=== PATIENT | male | born 1990 | race Caucasian/White ===

== ENCOUNTER 2016-10-28 10:31 | Emergency (ER) | payer OTHER ==
--- NOTE | ~2016-10-28 | CR169 ---
[facility] A Service of [facility] RADIOLOGY TEXT RESULTS PATIENT: LAYA LORD LOCATION: [facility] : [birth year] UNIT #: [id number] AGE: [address]: Giovanna Lyon SEX: M ORDER DR: [id number] [facility] [address] [place], [place] [address] [id number] E MR#: [id number] Acc #: [id number] NAME: LAYA LORD : 1990 SEX: M STUDY DATE/TIME: 10/28/2016 10:21 UNIT: [facility] ROOM: STUDY DESCRIPTION: CR Knee 2 Views Lt Attending Physician: Giovanna Lyon P.A.-C. Ordering Physician: Giovanna Lyon P.A.-C. [facility] This report is preliminary unless electronic signature is present EXAM Left knee 10/28/2016 HISTORY 26-year-old male with left knee pain for 3 days. History of gout. COMPARISON None. FINDINGS 2 views of the left knee demonstrate no acute fracture or dislocation. Small knee effusion. Joint spaces are maintained. No bony erosions. Soft tissues otherwise unremarkable. IMPRESSION Small left knee effusion. No acute bony abnormality. Dictated by... Richard Ochoa M.D. THIS IS AN ELECTRONICALLY VERIFIED REPORT Richard Ochoa M.D. at 10/28/2016 2:14 PM JAIDA/varun TD: 10/28/2016 12:20 JOB #: [id number] MEDICAL IMAGING REPORT Page 1 of 1 COPY
[~2016-10-28 10:31] MED LIST: BACTRIM DS TABL1 TAB PO; IBUPROFEN PO; IBUPROFEN800 MG PO; KEFLEX PO
== END 2016-10-28 11:20 | disposition home or self-care (01) ==
LOC: CED 10:31
DX: M10.9 Gout, unspecified (principal); M25.462 Effusion, left knee
CPT/HCPCS: 29530; 73560; 99283

== ENCOUNTER 2017-03-07 19:30 | Emergency (ER) | payer OTHER ==
[~2017-03-07] VITALS: Ht 190.5 cm; Wt 122.5 kg
== END 2017-03-07 23:50 | disposition home or self-care (01) ==
LOC: CFTX 19:30 → CED 19:30 → CFTX 21:30
DX: S01.81XA Laceration without foreign body of other part of head, initial encounter (principal); W20.8XXA Other cause of strike by thrown, projected or falling object, initial encounter; Y92.69 Other specified industrial and construction area as the place of occurrence of the external cause
CPT/HCPCS: 12014; 99283